=== PATIENT | male | born 1970 | race Caucasian/White ===

== ENCOUNTER 2017-07-23 09:30 | Emergency (ER) | payer OTHER ==
[~2017-07-23] VITALS: Ht 177.8 cm; Wt 83.0 kg
[~2017-07-23 09:30] MED LIST: LEXAPRO20 MG PO
[2017-07-23 11:34] VITALS: BP 145/105
== END 2017-07-23 11:35 | disposition home or self-care (01) ==
LOC: EME 09:30
DX: S61.215A Laceration without foreign body of left ring finger without damage to nail, initial encounter (principal); W45.8XXA Other foreign body or object entering through skin, initial encounter; Z23 Encounter for immunization; Z87.891 Personal history of nicotine dependence
CPT/HCPCS: 99281; 99283

== ENCOUNTER 2017-08-25 09:11 | Emergency (ER) | payer OTHER ==
[~2017-08-25] VITALS: Ht 177.8 cm; Wt 82.2 kg
[2017-08-25 09:45] LABS: HEMATOCRIT 43.9 % (38.0-50.0); MCH 30.8 PG (29.0-34.0); MCHC 35.8 G/DL (30.0-36.0); MCV 86.1 FL (86-99); MEAN PLAT.VOLUME 10.4 uM^3 (9.0-12.4); PLATELET COUNT 223 K/uL (156-360); RBC DIS.WIDTH-CV 12.2 % (11.8-14.6); RBC DIS.WIDTH-SD 38.4 % (39-53); WHITE BLOOD COUNT 5.8 K/uL (4.1-10.2)
[2017-08-25 09:57] LABS: CHLORIDE 107 mEq/L (99-109); POTASSIUM 3.9 mEq/L (3.7-5.4); SODIUM 139 mEq/L (136-147)
[2017-08-25 09:58] LABS: GLUCOSE 151 mg/dL (70-99)
[2017-08-25 10:00] LABS: ANION GAP 9 MEQ/L (2-14)
[2017-08-25 10:02] LABS: GFR ESTIMATE (CALCULATED) > 59 mL/min/
[2017-08-25 10:03] LABS: UREA NITROGEN (BUN) 16 mg/dL (9-23)
[2017-08-25 10:07] LABS: TROP-I INTERPRETATION NEGATIVE; TROPONIN-I < 0.01 ng/mL (0.0-0.30)
[2017-08-25 12:03] VITALS: BP 137/93
== END 2017-08-25 12:05 | disposition home or self-care (01) ==
LOC: EME 09:11
DX: R00.2 Palpitations (principal); F41.9 Anxiety disorder, unspecified; F32.9 Major depressive disorder, single episode, unspecified; Z87.891 Personal history of nicotine dependence
CPT/HCPCS: 71020; 80048; 84443; 84484; 85027; 93005; 99281; 99284